=== PATIENT | female | born 1985 | race Two or more races ===

== ENCOUNTER 2022-01-22 12:33 | Emergency (ER) | payer MEDICAID, SELFPAY | END 2022-01-22 13:43 | disposition left against medical advice (07) | PROVIDERS: Emergency Provider Emergency Medicine | DX: Z02.9 Encounter for administrative examinations, unspecified (principal) ==

== ENCOUNTER 2022-09-28 09:00 | Outpatient (AMB) | payer OTHER, SELFPAY ==
--- NOTE | 2022-09-28 09:02 | MHC.PC.OV ---
Vital Signs 09/28/22 09:03 Height 5 ft 8 in Weight 270 lb BMI 41.0 BP 110/78 Blood Pressure Location Lt brachial Position Sitting Intake Visit Reasons: New patient-Asthma/Fibromyalgia Intake Note: New patient, asthma, fibromyalgia, migraines Change Control Coordinator Required: No Accompanied by: Self / Same As Patient Allergies No Known Allergies Allergy (Verified 09/28/22 09:15) Medication List - Last Reconciled 09/28/22 by Magda Murray MD Unobtainable Tobacco use date assessed: 09/28/22 Dental Screening Dental Screen Date: 09/28/22 Did you have a dental visit in the last 12 months?: Yes Did you have a dental problem in the last 6 months where you did not have access to dental care?: No Was dental information given to patient?: Patient has dentist HPI HPI Comments History of Present Illness Details This is a 37-year-old female with morbid obesity, fibromyalgia, migraines, moderate persistent asthma and chronic GERD that comes today to establish care. She is morbidly obese with a BMI of 41.1 and declines weight loss surgery. Has fibromyalgia and used to be on gabapentin which I will restart her on a low dose. Patient aware that gabapentin can cause sleepiness. She has asthma and requires rescue inhaler 4 times a month. Has chronic GERD and used to be on omeprazole as needed. Patient is aware that omeprazole can cause osteoporosis and hypo magnesemia. She complains of low back pain and x-ray will be order. Her migraine happens every other day and I will add Topamax for migraine prophylaxis. She is aware that Topamax can cause sleepiness. Has moderate major depression and follows with a therapist. Denies any suicidal thoughts. [facility] Surgical History History of History of cholecystectomy Family History Mother Hypertension Father Cardiopathy Family/Other Mental health disorder Social History Housing: Apartment Alcohol intake: current Alcohol intake frequency: holidays/special occasions only Alcohol type: beer, wine and hard liquor Patient Tobacco Use Status: Former Tobacco user Tobacco use type: Cigarette e-Cigarette/Vaping Use: Never Used Second Hand Smoke Exposure: No service: No Current occupational status: unemployed Current occupational exposures/hazards: No Cognitive needs: No Hearing needs: No Vision needs: Yes Questionnaire PHQ-9 Over the last 2 weeks, how often have you been bothered by any of the following problems? 1. Little interest or pleasure in doing things: several days 2. Feeling down, depressed, or hopeless: nearly every day 3. Trouble falling or staying asleep, or sleeping too much: nearly every day 4. Feeling tired or having little energy: nearly every day 5. Poor appetite or overeating: nearly every day 6. Feeling bad about yourself - or that you are a failure or have let yourself or your family down: not at all 7. Trouble concentrating on things, such as reading the newspaper or watching television: several days 8. Moving or speaking so slowly that other people could have noticed. Or the opposite - being so fidgety or restless that you have been moving around a lot more than usual: several days 9. Thoughts that you would be better off or of hurting yourself in some way: not at all Total score: 15 Depression Screening Interpretation: Positive Depression Screening Follow-up: Existing condition and Community Mental Health Worker F/U 57547 - PHQ-9 Billing: Yes Source: Developed by Drs. Curtis Barry, Tatyana Cantu, Amandeep Lowry and colleagues, with an educational brian from [employer]. Thrive Questionnaire Date Thrive assessed: 09/28/22 I am a: Patient What is your living situation today?: I have a steady place to live Within the past 12 months, did the food you bought not last and you didn't have the money to get more?: Never true Within the past 12 months, did you worry whether your food would run out before you got money to buy more?: Never true Do you have trouble paying for medicines?: No Do you have trouble getting transportation to medical appointments?: No Do you have trouble paying your heating and electricity bill?: No Do you have trouble taking care of your child, family member or friend?: No Do you have trouble with day-to-day activities such as bathing, preparing meals, shopping, managing finances, etc.?: No Are you currently unemployed and looking for a job?: No Are you interested in more education?: No Please select the resources that you would like help with: None Currently or been in a relationship where the following occur: no concerns reported AUDIT C Alcohol Use Questionnaire (AUDIT-C) 1. How often do you have a drink containing alcohol?: Monthly or less 2. How many drinks containing alcohol do you have on a typical day when you are drinking?: 1 or 2 3. How often do you have six or more drinks on one occasion?: Never Total Score: 1 Score Reviewed/Action Taken: No NAVID-7 AMB Questionnaire NAVID-7 Date NAVID - 7 assessed: 09/28/22 Feeling nervous, anxious, or on edge: 3 = Nearly every day Not being able to stop or control worryin = Not at all Worrying too much about different things: 1 = Several days Trouble relaxin = Several days Being so restless that it is hard to sit still: 2 = More than half the days Becoming easily annoyed or irritable: 1 = Several days Feeling afraid as if something awful might happen: 0 = Not at all Total NAVID-7 score (0-4 normal; 5-9 mild; 10-14 moderate; 15-21 severe): 8 Source: Developed by Drs. Curtis Barry, Tatyana Cantu, Amandeep Lowry and colleagues, with an educational brian from [employer]. NAVID-7 Assessment Billing NAVID-7 Assessment Tool: NAVID-7 Assessment 65343 Review of Systems Const All systems reviewed & are unremarkable except as noted in HPI and below Eyes Reports no additional complaints, Denies change in vision and Denies other visual disturbances Card Denies chest pain at rest, Denies chest pain with activity, Denies edema, Denies irregular heart rhythm, Denies claudication, Denies dyspnea, Denies dyspnea on exertion, Denies orthopnea, Denies paroxysmal nocturnal dyspnea and Denies slow heart rate Resp Denies cough, Denies dyspnea and Denies dyspnea on exertion GI Denies abdominal pain, Denies change in bowel habits, Denies excessive flatus, Denies nausea and Denies vomiting Denies urinary incontinence, Denies urinary hesitancy and Denies urinary urgency Musc Denies abnormal gait, Denies atrophy, Denies deformity and Denies limited range of motion Skin/Breast Denies bleeding lesions, Denies changing lesions and Denies rash Neuro Denies abnormal gait and Denies lack of coordination Physical exam (Primary Care) Vital Signs: Last Vital Signs BP 110/78 09/28/22 09:03 BMI result Body Mass Index 41.0 Tobacco/Smoking Status: Tobacco use Status Tobacco use date assessed 09/28/22 09/28/22 09:12 Patient Tobacco Use Status Former Tobacco user 09/28/22 09:12 Tobacco use type Cigarette 09/28/22 09:12 e-Cigarette/Vaping Use Never Used 09/28/22 09:12 PHQ-9: PHQ-9 Score PHQ-9: Total score 15 09/28/22 09:23 Depression Screening Interpretation: Positive Depression Screening Follow-up: Existing condition and Community Mental Health Worker F/U Thrive Assessment: Date of Thrive Assessment Date Thrive assessed 09/28/22 09/28/22 09:12 Currently or been in a relationship where the following occur: no concerns reported Eyes General: appearance normal, both eyes and all related structures Eyelids: Yes eyelids normal Conjunctivae: conjunctivae normal Neck Neck: Yes normal visual inspection and Yes supple Resp Effort & Inspection: normal respiratory effort Auscultation: clear to auscultation bilaterally Cardio Jugular venous distension: no JVD Rate: regular rate Rhythm: regular rhythm Heart sounds: S1 normal heart sound present and S2 normal heart sound present Extrem General: Yes full ROM Assessment and Plan Assessment & Plan (1) Morbid obesity: Code(s): E66.01 - Morbid (severe) obesity due to excess calories Plan: Start diet and exercise. BMI goal is less than 30. (2) Asthma: Code(s): J45.909 - Unspecified asthma, uncomplicated Plan: Use rescue inhaler as needed. Start longstanding inhaler twice a day. (3) Migraines: Code(s): G43.909 - Migraine, unspecified, not intractable, without status migrainosus Plan: Start Topamax for migraine prophylaxis at bedtime. Use sumatriptan as needed. (4) Fibromyalgia: Code(s): M79.7 - Fibromyalgia Plan: Restart gabapentin. (5) Chronic GERD: Code(s): K21.9 - Gastro-esophageal reflux disease without esophagitis Plan: Restart omeprazole as needed. (6) Lumbar pain: Code(s): M54.50 - Low back pain, unspecified Plan: X-ray ordered. (7) Moderate major depression: Code(s): F32.1 - Major depressive disorder, single episode, moderate Plan: Continue counseling Orders: Orders Comprehensive [place]. Panel Fast Today E66.01 - Morbid (severe) obesity due to excess calories Lipid Panel Today E66.01 - Morbid (severe) obesity due to excess calories Thyroid Stimulating Hormone Today E66.01 - Morbid (severe) obesity due to excess calories Complete Blood Count Auto Diff Today D64.9 - Anemia, unspecified, E66.01 - Morbid (severe) obesity due to excess calories XR lumbar spine 2-3V Today M54.50 - Low back pain, unspecified Cyclic Citrullinated Peptide Today M79.7 - Fibromyalgia Rheumatoid Factor Today M79.7 - Fibromyalgia Erythrocyte Sedimentation Rate Today M79.7 - Fibromyalgia MAGDA Reflex Titer and Pattern Today M79.7 - Fibromyalgia Medications: New omeprazole 20 mg PO DAILY 90 days PRN 90 caps 1RF heartburn K21.9 - Gastro-esophageal reflux disease without esophagitis gabapentin 100 mg PO TID 30 days 90 caps 1RF M79.7 - Fibromyalgia topiramate 25 mg PO BEDTIME 90 days 90 tabs 1RF G43.909 - Migraine, unspecified, not intractable, without status migrainosus sumatriptan succinate do not exceed 8 doses per 24 hrs 25 mg PO Q2-4H 30 days PRN 9 tabs 1RF migraine headache G43.909 - Migraine, unspecified, not intractable, without status migrainosus budesonide-formoterol 80-4.5 mcg/actuation 1 inh inhalation BID 30 days 10.2 grams 6RF J45.909 - Unspecified asthma, uncomplicated Coding Level of Care Code New Pt Level 4 (31140) Diagnoses Morbid obesity E66.01 Asthma J45.909 Migraines G43.909 Fibromyalgia M79.7 Chronic GERD K21.9 Lumbar pain M54.50 Moderate major depression F32.1 Additional Codes NAVID-7 Assessment Billing - NAVID-7 Assessment Tool: NAVID-7 Assessment 99674 ([id number]) Time Spent (min) 25
[2022-09-28 09:03] VITALS: BP 110/78; BMI 41.0
== END 2022-09-28 09:35 | disposition home or self-care (01) ==
PROVIDERS: Visit Provider Internal Medicine
DX: J45.909 Unspecified asthma, uncomplicated (principal); E66.01 Morbid (severe) obesity due to excess calories; G43.909 Migraine, unspecified, not intractable, without status migrainosus; Z68.41 Body mass index [BMI] 40.0-44.9, adult; M79.7 Fibromyalgia; K21.9 Gastro-esophageal reflux disease without esophagitis; M54.50 Low back pain, unspecified; F32.1 Major depressive disorder, single episode, moderate
CPT/HCPCS: 99204

== ENCOUNTER 2022-09-28 09:43 | Outpatient (REF) | payer MEDICAID, SELFPAY ==
--- NOTE | ~2022-09-28 | XR_ITS ---
EXAMINATION: XR LUMBOSACRAL SPINE CLINICAL INFORMATION: Low back pain. COMPARISON: None available. TECHNIQUE: Three views of the lumbosacral spine. FINDINGS: Slight rightward curvature of the lumbar spine. Surgical clips right upper quadrant. Facet arthritis in the lower lumbar spine. Reversal of the normal lumbar lordosis. Mild multilevel spondylosis most notable at L2-L3 with mild loss of disc space height. XR/XR lumbar spine 2-3V IMPRESSION: Mild degenerative changes at L2-L3. Additional imaging with CT scan or MRI should be considered for better visualization as these modalities are much more sensitive for detection of fracture or other underlying pathology.
[2022-09-28 10:08] LABS: MANUAL DIFF FLAG NO
[2022-09-28 10:51] LABS: Basophils Absolute Auto 0.1 X10*3/uL (0.0-0.2); Basophils Percent Auto 0.8 % (0-2); Eosinophils Absolute Auto 0.1 X10*3/uL (0.0-0.4); Eosinophils Percent Auto 1.7 % (0-4); Hematocrit 40.5 % (37.0-47.0); Hemoglobin 12.3 g/dl (12.0-16.0); Imm Gran Abs Auto 0.02 X10*3/uL (0.00-0.03); Imm Gran Pct Auto 0.3 % (0.0-0.4); Lymphocytes Absolute Auto 2.3 X10*3/uL (1.2-4.9); Lymphocytes Percent Auto 31.5 % (20-40); Mean Corpuscular HGB Conc 30.4 g/dl (31.0-35.0); Mean Corpuscular Hemoglobin 23.1 pg (27.0-33.0); Mean Corpuscular Volume 76.1 fL (80.0-98.0); Monocytes Absolute Auto 0.5 X10*3/uL (0.1-1.2); Monocytes Percent Auto 7.3 % (2-11); Neutrophils Absolute Auto 4.3 x10*3/uL (2.0-8.3); Neutrophils Percent Auto 58.4 % (45-73); Platelet Count 242 X10*3/uL (160-400); Red Blood Count 5.32 X10*6/uL (4.20-5.50); Red Cell Distribution Width 14.9 % (11.0-16.0); White Blood Count 7.3 X10*3/uL (4.8-10.8)
[2022-09-28 11:32] LABS: Alanine Aminotransferase 13 U/L (0-31); Albumin Level 3.8 g/dL (3.5-5.0); Alkaline Phosphatase 73 U/L (39-117); Anion Gap 10 (12-20); Aspartate Amino Transferase 11 U/L (5-31); Bilirubin Total 0.9 mg/dL (0.0-1.0); Blood Urea Nitrogen 11 mg/dL (9-16); Calcium 9.4 mg/dL (8.4-10.2); Carbon Dioxide 27 mmol/L (22-29); Chloride 104 mmol/L (96-108); Cholesterol 188 mg/dL; Estimated Glomerular Filt Rate > 60; Glucose Fasting 90 mg/dL (60-99); HDL Cholesterol 43 mg/dL; LDL Cholesterol Calculated 125 mg/dl; Potassium 4.2 mmol/L (3.3-5.1); Sodium 137 mmol/L (135-145); Total Protein 7.6 g/dL (6.5-8.0); Triglycerides 103 mg/dL
[2022-09-28 11:35] LABS: Erythrocyte Sedimentation Rate 11 MM/HR (0-20)
[2022-09-28 11:40] LABS: Rheumatoid Factor < 13.0 IU/mL (<15.0)
[2022-09-28 11:46] LABS: Thyroid Stimulating Hormone 1.89 uIU/mL (0.32-4.0)
[2022-10-04 13:39] LABS: Anti Nuclear Antibody Screen NEGATIVE (NEGATIVE)
[2022-10-04 15:28] LABS: Cyclic Citrullinated Peptide <16 UNITS
== END 2022-09-28 09:44 | disposition home or self-care (01) ==
LOC: HO.LAB 09:43
PROVIDERS: PCP Internal Medicine; Visit Provider Internal Medicine
DX: E66.01 Morbid (severe) obesity due to excess calories (principal); M79.7 Fibromyalgia; D64.9 Anemia, unspecified; M54.50 Low back pain, unspecified
CPT/HCPCS: 36415; 72100; 80053; 80061; 84443; 85025; 85652; 86038; 86200; 86431